=== PATIENT | female | born 1990 | race Caucasian/White ===

== ENCOUNTER 2016-09-26 04:09 | Outpatient (CLI) | END 2016-09-26 04:10 | disposition home or self-care (01) | LOC: LAB 04:09 | PROVIDERS: ATTEND Emergency Medicine | DX: Z11.59 Encounter for screening for other viral diseases (principal) | CPT/HCPCS: 36415 ==

== ENCOUNTER 2017-10-30 06:27 | Outpatient (CLI) | END 2017-10-30 06:28 | disposition home or self-care (01) | LOC: LAB 06:27 | PROVIDERS: ATTEND Family Medicine | DX: E28.2 Polycystic ovarian syndrome (principal) | CPT/HCPCS: 36415; 80053; 81001; 83036; 83525; 84703; 85025; 85027 ==

== ENCOUNTER 2018-03-29 08:50 | Emergency (ER) ==
[2018-03-29] MEDS ORDERED: ATIVAN IVP STA (08:55)
[2018-03-29 09:15] VITALS: BP 145/78; TEMP 97.5; BMI 46.5
--- NOTE | 2018-03-29 09:15 | DI ---
EXAM: CHEST FRONTAL VIEW HISTORY: Supraventricular tachycardia . COMPARISON: None FINDINGS: Heart size and mediastinum within normal limits. Lungs are free of infiltrate. No c onsolidation or pleural fluid. There is no pneumothorax or acute bony finding. IMPRESSION: Findings within normal limits.
[2018-03-29] MEDS ORDERED: ADENOCARD IVP STA (09:16)
[2018-03-29] MEDS ORDERED: SODIUM CHLORIDE 1,000 ML IV STA (09:19)
--- NOTE | 2018-03-29 10:12 | ED.PDOC ---
General ED Provider: Dr. LUZ DELACRUZ Chief Complaint: Palpitations Stated Complaint: PALPITATION SUDDEN ONSET THIS MORNING Time Seen by Physician: 09:10 (NO L.O.C. BLOOD PRESSURE AND NRURO LOGICAL STATUS REMAINED W.N.L) Mode of Arrival: Walk-In Information Source: Patient Exam Limitations: No limitations Primary Care Provider: JUANA HUDSON Nursing and Triage Documentation Reviewed and Agree: Yes Does patient meet sepsis criteria?: No System Inflammatory Response Syndrome: Not Applicable Sepsis Protocol: For patient's 13 years and over: Temp is 96.8 and below OR 101 and greater Pulse >90 BPM Resp >20/minute Acutely Altered Mental Status Are patient's symptoms suggestive of a new infection, such as: -Pneumonia -Skin, Soft Tissue -Endocarditis -UTI -Bone, Joint Infection -Implantable Device -Acute Abdominal Infection -Wound Infection -Meningitis -Blood Stream Catheter Infection -Unknown Cardiovascular Complaint Exam - Palpitations Complaint/Exam Onset/Duration: 1 HR AGO Symptoms Are: Resolved Timing: Intermittent Initial Severity: Severe Current Severity: Severe Character: Reports: Pounding Aggravating: Reports: None Alleviating: Reports: Medications Associated Signs and Symptoms: Denies: Lightheadedness, Dizziness, Syncope, Chest pain, Shortness of breath, Diaphoresis, Nausea, Vomiting Related History: Similar episode (YEARS AGO) Related Surgical History: Reports: None Cardiac Risk Factors: Reports: None Pulmonary Embolism Risk Factors: Reports: None Thyroid Exam: Normal Differential Diagnoses: Hypokalemia, Other (AVNRT) Quality Indicators for AMI: EKG in 10min. Quality Indicators for Cardiac Chest Pain: EKG in 10min. Quality Indicator For Non-Traumatic Chest Pain/Syncope: EKG Performed Review of Systems - Review Of Systems Constitutional: Reports: No symptoms Eyes: Reports: No symptoms Ears, Nose, Mouth, Throat: Reports: No symptoms Respiratory: Reports: No symptoms Cardiac: Reports: Palpitations GI: Reports: No symptoms : Reports: No symptoms Musculoskeletal: Reports: No symptoms Skin: Reports: No symptoms Neurological: Reports: No symptoms Endocrine: Reports: No symptoms Hematologic/Lymphatic: Reports: No symptoms All Other Systems: Reviewed and Negative Past Medical History - Past Medical History Previously Healthy: Yes Endocrine: Reports: None Cardiovascular: Reports: Other (S.V.T.) Respiratory: Reports: None Hematological: Reports: None Gastrointestinal: Reports: None Genitourinary: Reports: None Neuro/Psych: Reports: None Musculoskeletal: Reports: None Cancer: Reports: None Last Menstrual Period: months - Surgical History General Surgical History: Reports: None - Family History Family History: Reports: None - Social History Smoking Status: Never smoker Hx Substance Use: No Alcohol Screening: None Physical Exam - Physical Exam Appearance: Ill-appearing Ill-appearing: Severe Pain Distress: Mild Eyes: DANIEL, EOMI, Conjunctiva clear ENT: Ears normal, Nose normal, Oropharynx normal Respiratory: Airway patent, Breath sounds clear, Breath sounds equal, Respirations nonlabored Cardiovascular: Tachycardia GI/: Soft, Nontender, No masses, Bowel sounds normal, No Organomegaly Musculoskeletal: Normal strength, ROM intact, No edema, No calf tenderness Skin: Warm, Dry, Normal color Neurological: Sensation intact, Motor intact, Reflexes intact, Cranial nerves intact, Alert, Oriented Psychiatric: Affect appropriate, Mood appropriate Interpretation - Radiology Interpretation Radiology Interpretation By: Radiologist Radiology Results: Negative Exam Interpreted: CXR - Manager Image Rhythm: Other (SVT LATER CONVERTED TO N.S.R) - EKG Interpretation Rate: Tachy Rhythm: Sinus Critical Care Note - Critical Care Note Total Time (mins): 0 Course - Course Hematology/Chemistry: 03/29/18 09:42 Orders, Labs, Meds: Lab Review 03/29/18 09:42 WBC 9.78 RBC 4.94 Hgb 14.5 Hct 43.4 MCV 87.9 MCH 29.4 MCHC 33.4 RDW Coeff of Flower 12.7 Plt Count 327 Immature Gran % (Auto) 0.2 Neut % (Auto) 59.8 Lymph % (Auto) 31.3 Jack % (Auto) 7.3 Eos % (Auto) 1.0 Baso % (Auto) 0.4 Immature Gran # (Auto) 0.0 Neut # (Auto) 5.9 Lymph # (Auto) 3.1 Jack # (Auto) 0.7 Eos # (Auto) 0.1 Baso # (Auto) 0.0 Orders Category Date Time Status EKG-(ED ONLY) Stat CARDIO 03/29/18 08:55 Completed EKG-(ED ONLY) Stat CARDIO 03/29/18 10:06 Ordered ED IV/MEDIPORT/POWERPORT .ONCE EMERGENCY 03/29/18 08:55 Active CBC W/ AUTO DIFF Stat LAB 03/29/18 09:42 Completed COMPREHENSIVE METABOLIC PANEL Stat LAB 03/29/18 09:42 Received CREATINE KINASE Stat LAB 03/29/18 09:42 Received TROPONIN I Stat LAB 03/29/18 09:42 Received URINALYSIS C & S IF INDICATED Stat LAB 03/29/18 09:55 Received 0.9 % Sodium Chloride [Saline Flush] MEDS 03/29/18 08:55 Active 1 syr IVF PRN PRN Adenosine [Adenocard] MEDS 03/29/18 09:16 Discontinued 6 mg IVP ONCE STA Lorazepam Inj [Ativan] MEDS 03/29/18 08:55 Discontinued 1 mg IVP ONCE STA Sodium Chloride 0.9% [Sodium Chloride] 1,000 ml MEDS 03/29/18 09:19 Active IV BOLUS CHEST, 1V AP ONLY Stat RADS 03/29/18 08:55 Completed Medications Generic Name Dose Route Start Last Admin Trade Name Freq PRN Reason Stop Dose Admin Sodium Chloride 1,000 mls @ 1,000 mls/hr 03/29/18 09:19 03/29/18 08:56 Sodium Chloride IV 03/29/18 10:18 1,000 mls/hr BOLUS STA Administration Sodium Chloride 1 syr 03/29/18 08:55 03/29/18 09:23 Saline Flush IVF 1 syr PRN PRN Administration To flush IV Discontinued Medications Generic Name Dose Route Start Last Admin Trade Name Freq PRN Reason Stop Dose Admin Adenosine 6 mg 03/29/18 09:16 03/29/18 08:57 Adenocard IVP 03/29/18 09:17 6 mg ONCE STA Administration Lorazepam 1 mg 03/29/18 08:55 03/29/18 08:56 Ativan IVP 03/29/18 08:56 1 mg ONCE STA Administration Vital Signs: Temp Pulse Resp BP Pulse Ox 03/29/18 09:06 97.5 F L 235 H 20 145/78 H 98 NICHO Risk Score NICHO Risk Score: Risk Score Odds of by 30D 0 0.1 (0.1-0.2) 1 0.3 (0.2-0.3) 2 0.4 (0.3-0.5) 3 0.7 (0.6-0.9) 4 1.2 (1.0-1.5) 5 2.2 (1.9-2.6) 6 3.0 (2.5-3.6) 7 4.8 (3.8-6.1) Departure - Departure Time of Disposition: 11:00 Disposition: TSF SHORT-TRM HOSP Discharge Problem: Palpitations, SVT (supraventricular tachycardia) Instructions: Tachycardia (ED), Supraventricular Tachycardia (ED) Condition: Good Pt referred to PMD for follow-up: Yes IPMP verified?: No Additional Instructions: Please call your Family Physician as soon as possible to schedule a follow-up appointment. Allergies/Adverse Reactions: Allergies No Known Allergies Allergy (Verified 03/29/18 09:15) Home Medications: Ambulatory Orders 1 [No Reported Medications] 03/29/18 Transfer Form Completed: Yes Disposition Discussed With: Patient, Family
== END 2018-03-29 12:05 | disposition short-term general hospital (02) ==
LOC: ED 08:54
DX: R00.2 Palpitations (principal); I47.1 Supraventricular tachycardia
CPT/HCPCS: 36415; 80053; 81001; 82550; 84484; 85025; 93005; 93010; 96361; 96374; 96375; 99284